=== PATIENT | female | born 1970 | race Caucasian/White ===

== ENCOUNTER 2022-01-01 13:48 | Emergency (ER) | payer OTHER ==
[~2022-01-01] VITALS: Ht 154.9 cm; Wt 58.1 kg
== END 2022-01-01 19:25 | disposition home or self-care (01) ==
LOC: ER 13:48
DX: R42 Dizziness and giddiness (principal)

== ENCOUNTER 2022-06-22 10:14 | Outpatient (CLI) | payer OTHER | END 2022-06-22 10:16 | disposition home or self-care (01) | LOC: SONOGRAMA 10:14 | PROVIDERS: ATTEND Pathology Anatomic Pathology & Clinical Pathology | DX: D34 Benign neoplasm of thyroid gland (principal) ==

== ENCOUNTER 2023-08-06 12:47 | Outpatient (CLI) | payer OTHER | END 2023-08-07 08:41 | disposition home or self-care (01) | LOC: SONOGRAMA 12:47 | PROVIDERS: ATTEND Pathology Anatomic Pathology & Clinical Pathology | DX: D34 Benign neoplasm of thyroid gland (principal); E07.89 Other specified disorders of thyroid; E04.1 Nontoxic single thyroid nodule ==